=== PATIENT | female | born 1965 | race Caucasian/White ===

== ENCOUNTER → 2022-02-09 | Outpatient (CLI) | payer OTHER ==
--- NOTE | 2022-02-09 16:50 | KCIC ---
EXAM: XR LUMBAR SPINE 4+V 02/09/2022 2:12 PM CLINICAL INDICATION: Lower back pain for years. No injury COMPARISON: None TECHNIQUE: 5 views of the lumbar spine FINDINGS: There is levoscoliosis of the thoracolumbar spine. There is sacralization of L5. No acute fracture. Alignment is normal. There is mild disc space narrowing throughout the lumbar spine. Small anterior osteophytes at multiple levels. Mild facet arthrosis. IMPRESSION: 1. Levoscoliosis of the thoracolumbar spine. 2. Transitional anatomy at the lumbosacral junction. 3. Mild degenerative disc disease. Electronically signed by: Isi Collins MD (02/09/2022 4:48 PM) [id number]
== END ==
LOC: KCIC 14:09
PROVIDERS: ATTEND Internal Medicine Rheumatology
DX: M51.35 Other intervertebral disc degeneration, thoracolumbar region (principal); M48.061 Spinal stenosis, lumbar region without neurogenic claudication; M41.85 Other forms of scoliosis, thoracolumbar region
CPT/HCPCS: 72110